=== PATIENT | female | born 1940 | race Caucasian/White ===

== ENCOUNTER 2017-09-26 15:15 | Observation (INO) | payer OTHER, MEDICARE ==
[~2017-09-26] VITALS: Ht 162.6 cm; Wt 74.4 kg
--- NOTE | 2017-09-26 15:40 | ED GI/GU/ABDOMINAL COMPLAINT ---
See Addendum History of Present Illness General Chief Complaint: General Adult Stated Complaint: NAUSEA,DIARRHEA,DEPRESSION AND ANXIETY X 1WK Source: patient, family Exam Limitations: no limitations Vital Signs & Intake/Output Vital Signs & Intake/Output Vital Signs Date Time Temp Pulse Resp B/P B/P Pulse O2 O2 Flow FiO2 Mean Ox Delivery Rate 09/27 1058 97.5 50 18 117/55 93 Room Air 09/27 0937 50 135/62 09/27 0937 50 135/62 09/27 0934 Room Air Room Air 09/27 0934 50 135/62 09/27 0740 97.4 61 18 136/61 94 Room Air 09/27 0641 96.0 52 16 139/64 97 Room Air 09/26 2349 50 16 118/58 95 Room Air 09/26 2147 97.8 72 16 227/100 09/26 1923 97.8 72 16 227/100 96 Room Air 09/26 1719 98.0 56 18 205/83 96 Room Air 09/26 1519 97.1 60 20 158/88 94 Room Air Room Air ED Intake and Output 09/27 0000 09/26 1200 Intake Total Output Total Balance Patient 164 lb Weight Weight Reported by Patient Measurement Method Allergies Coded Allergies: amitriptyline (From ELAVIL) (Intermediate, HALLUCINATIONS 09/26/17) peanut (UNKNOWN 09/26/17) Reconcile Medications Amiodarone HCl 200 MG TABLET 1 TAB PO QAM HEART (Reported) Aspirin (Ecotrin*) 81 MG TABLET.DR 1 TAB PO DAILY HEART/BLOOD (Reported) Clonazepam 0.5 MG TABLET 1 TAB PO BID ANXIETY (Reported) Cyanocobalamin (Vitamin B-12) (B-12 Dots) 500 MCG TABLET 1 TAB PO QAM SUPPLEMENT (Reported) Docusate Sodium (Colace) 100 MG CAPSULE 1 CAP PO BID PRN CONSTIPATION ( Reported) Duloxetine HCl 60 MG CAPSULE.DR 1 CAP PO QAM UNKNOWN (Reported) Ferrous Sulfate 325 MG (65 MG IRON) TABLET 1 TAB PO QAM SUPPLEMENT (Reported) Levothyroxine Sodium 100 MCG TABLET 1 TAB PO DAILY THYROID (Reported) Losartan Potassium 50 MG TABLET 1 TAB PO QAM BP (Reported) Mag Hydrox/Al Hydrox/Simeth (Alum-Mag Hydroxide-Simeth Liq) 200 MG-200 MG-20 MG/ 5 ML ORAL.SUSP 30 ML PO TID UNKNOWN (Reported) Meloxicam 7.5 MG TABLET 1 TAB PO QAM PAIN/INFLAMMATION (Reported) Methylphenidate HCl (Ritalin) 5 MG TABLET 10 MG PO QAM UNKNOWN (Reported) Mirtazapine 15 MG TABLET 1 TAB PO QPM UNKNOWN (Reported) Nystatin 500,000 UNIT TABLET 1 TAB PO TID ANTIFUNGAL (Reported) Ondansetron HCl 4 MG TABLET 1 TAB PO Q6P PRN NAUSEA (Reported) Pantoprazole Sodium 40 MG TABLET.DR 1 TAB PO DAILY GI (Reported) Potassium Chloride 10 MEQ TAB.ER.PRT 1 TAB PO DAILY CHOLESTEROL (Reported) Pravastatin Sodium 40 MG TABLET 1 TAB PO QPM CHOLESTEROL (Reported) Triage Note: PT TO ED WITH C/O NAUSEA AND DIARRHEA X 1 WEEK, EATING VERY LITTLE "GET DIARRHEA EVERY TIME I EAT". Triage Nurses Notes Reviewed? yes ? N Is pt currently ? No Onset: Gradual Duration: week(s): Timing: recent history Quality/Severity: moderate Location: generalized abdomen HPI: 77YO F with hx of HTN, GERD, anxiety, depression presents emergency department complaining of diarrhea times over one week. Patient reports 3-4 episodes of nonbloody stool per day. Patient also complaining of nausea beginning yesterday. Patient states she cannot eat anything this will go right through her system. Patient's are primary care doctor 3 days ago and was started on Mylanta for her GI issues and nystatin for "mouth ulcers". Patient is also reporting worsening depression recently although states she has been depressed for about 6 months. Daughter states patient does not access to psychiatrist at assisted living facility where she resides. Patient has no similar previous episodes of diarrhea. Patient denies fevers, chills, abdominal pain, chest pain , dyspnea. (Jacinta SPRINGER,Radha Mead) Past History Travel History Traveled to [place] past 21 day No Medical History Any Pertinent Medical History? 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 No (Jacinta SPRINGER,Radha Mead) Review of Systems Review of Systems Constitutional: Reports: no symptoms. EENTM: Reports: see HPI. Respiratory: Reports: no symptoms. Cardiovascular: Reports: no symptoms. GI: Reports: see HPI. Genitourinary: Reports: no symptoms. Musculoskeletal: Reports: no symptoms. Skin: Reports: no symptoms. Neurological/Psychological: Reports: see HPI. Hematologic/Endocrine: Reports: no symptoms. Immunologic/Allergic: Reports: no symptoms. All Other Systems: Reviewed and Negative (Jacinta SPRINGER,Radha Mead) Physical Exam Physical Exam General Appearance: well developed/nourished, no apparent distress, alert, awake Head: atraumatic, normal appearance Eyes: Bilateral: normal appearance. Ears, Nose, Throat, Mouth: hearing grossly normal, moist mucous membrane, pharynx normal, no ulcers Neck: normal inspection, supple, full range of motion Respiratory: normal breath sounds, no respiratory distress, lungs clear Cardiovascular: regular rate/rhythm Gastrointestinal: normal bowel sounds, soft, no organomegaly, RUQ, RLQ tenderness, no gaurding Back: normal inspection, normal range of motion Extremities: normal range of motion Neurologic/Psych: awake, alert, oriented x 3, facial twitching through out exam Skin: intact, normal color, warm/dry Core Measures ACS in differential dx? No Sepsis Present: No Sepsis Focused Exam Completed? No (Jacinta SPRINGER,Radha Mead) Progress Differential Diagnosis: appendicitis, bowel obstruction, cholecystitis, diverticulitis, gastritis, inflamm bowel dis, SBO, gastroenteritis, infectious diarrhea, colitis, c diff Plan of Care: Orders Procedure Date/time Status Heart Healthy Diet 09/[address] in observation 09/26 2202 Active Patient Data 09/26 2202 Active Add-on Test (ER Only) 09/26 2138 Active CULTURE,STOOL 09/26 1921 Active Add-on Test (ER Only) 09/26 1736 Active URINE DRUG SCREEN FOR ER ONLY 09/26 1736 Complete URINALYSIS 09/26 1736 Complete ED CRISIS PSYCH CONSULT 09/26 1633 Active Intake & Output 09/26 1557 Active ETHANOL 09/26 1550 Complete RAPID VIRAL INFLUENZA A 09/26 1540 Complete C.DIFFICILE 09/26 1530 Active COMPREHENSIVE METABOLIC PANEL 09/26 1524 Complete CBC WITHOUT DIFFERENTIAL 09/26 1524 Complete Current Medications Sig/Darlene Start time Last Medication Dose Stop Time Status Admin Mirtazapine 15 MG QPM 09/27 2200 AC (Remeron) Pravastatin Sodium 40 MG QPM 09/27 2200 AC (Pravachol) Amiodarone HCl 200 MG QAM 09/27 1000 AC (Cordarone) Aspirin Buffered 81 MG DAILY 09/27 1000 AC 09/27 (Ecotrin) 0937 Duloxetine HCl 60 MG QAM 09/27 1000 AC 09/27 (Cymbalta) 0937 Losartan Potassium 50 MG QAM 09/27 1000 AC 09/27 (Cozaar) 0937 Methylphenidate HCl 10 MG QAM 09/27 1000 AC 09/27 (Ritalin) 0946 Levothyroxine Sodium 0.1 MG DAILY AC 09/27 0700 AC 09/27 (Synthroid) 0937 Clonazepam 0.5 MG BID 09/26 2300 AC 09/27 (KlonoPIN) 10/03 225 0937 Docusate Sodium 100 MG BID PRN 09/26 2300 AC (Colace) Diphenoxylate HCl/ 2.5 MG 4 TIMES/DAY 09/26 220 AC 09/27 Atropine 0937 (Lomotil) Laboratory Tests 09/26/17 1912: Urine Opiates Screen < 100.00, Methadone Screen 87, Barbiturate Screen < 60, Ur Phencyclidine Scrn < 6.00, Amphetamines Screen < 100, U Benzodiazepines Scrn < 85, Urine Cocaine Screen < 50, Urine Cannabis Screen < 5.00, Urinalysis MOD H, Urine Color YEL, Urine Clarity HAZY H, Urine pH 6.5, Ur Specific [place] 1.010, Urine Protein NEG, Urine Ketones NEG, Urine Nitrite NEG, Urine Bilirubin NEG, Urine Urobilinogen 0.2, Ur Leukocyte Esterase SMALL H, Ur Microscopic SEDIMENT EXAMINED, Urine RBC FEW H, Urine WBC 1-3 H, Ur Epithelial Cells FEW, Urine Bacteria FEW H, Urine Hemoglobin TRACE-INTACT, Urine Glucose NEG 09/26/17 1550: Anion Gap 9, Estimated GFR > 60, BUN/Creatinine Ratio 17.8, Glucose 89, Calcium 9.4, Total Bilirubin 0.3, AST 28, ALT 42, Alkaline Phosphatase 78, Total Protein 5.7 L, Albumin 3.6, Globulin 2.1, Albumin/Globulin Ratio 1.7, CBC w Diff NO MAN DIFF REQ, RBC 5.05, MCV 89.8, MCH 29.6, MCHC 33.0, RDW 13.4, MPV 10.5 H, Gran % 66.1, Lymphocytes % 24.7, Monocytes % 7.8, Eosinophils % 1.1, Basophils % 0.3, Absolute Granulocytes 3.3, Absolute Lymphocytes 1.2, Absolute Monocytes 0.4, Absolute Eosinophils 0.1, Absolute Basophils 0, Serum Alcohol < 10.0 Microbiology 09/26 1920 STOOL: Clostridium difficile Toxin A & B - RES 09/26 1920 STOOL: Stool Culture - RES 09/26 1515 NASOPHARYN: Influenza Virus A & B Rapid Smear - COMP The patient was discussed with Dr. Balderrama. We'll start Lomotil 4 times a day for 2 days for her diarrhea. Stool cultures pending. Will do Zofran when necessary for nausea. Crisis present to see and evaluate patient. They recommend geriatric psychiatry admission. Patient to be ED observation given her diarrhea and hypertension here in the emergency department pending geriatric psychiatric admission to another facility. All findings discussed with the patient's daughter who agrees with the plan of care. Diagnostic Imaging: Viewed by Me: CT Scan. Discussed w/RAD: CT Scan. Radiology Impression: PATIENT: EDMUND GREGORIO PRESENT AGE: 77 PATIENT ACCOUNT NO: [id number] : 38 LOCATION: [facility] ORDERING PHYSICIAN: Radha SPRINGER SERVICE DATE: 09/26/17 EXAM TYPE: CAT - CT ABD & PELVIS W IV CONTRAST EXAMINATION: CT ABDOMEN AND PELVIS WITH CONTRAST CLINICAL INFORMATION: Generalized abdominal pain. Diarrhea. COMPARISON: None. TECHNIQUE: Multidetector volumetric imaging was performed of the abdomen and pelvis following IV administration of 95 mL of Optiray 320 intravenous contrast. Sagittal and coronal reformatted images were obtained on the technologist's workstation. DLP: 339.2 mGy-cm FINDINGS: LUNG BASES: The visualized lung bases are unremarkable. Bilateral breast implants. LIVER, GALLBLADDER, AND BILIARY TREE: The liver is normal in size, shape, and attenuation. No focal hepatic lesion or biliary ductal dilatation is present. The gallbladder is unremarkable with no evidence of radiopaque gallstones, gallbladder wall thickening, or obvious pericholecystic inflammatory changes. PANCREAS: Unremarkable. SPLEEN: Unremarkable. ADRENAL GLANDS: Unremarkable. KIDNEYS AND URETERS: There are numerous bilateral cysts of the kidneys. These range in size from several millimeters to the largest at the upper pole of the left kidney measuring about 5.6 cm in diameter. No renal or ureteral calculi. There is no hydronephrosis. BLADDER: Unremarkable. GASTROINTESTINAL TRACT: There is diverticulosis of the sigmoid. There are a few scattered diverticula in the remainder of the colon. No acute abnormality of the bowel. No bowel obstruction. No bowel wall thickening or edema. There is a moderate volume of stool scattered throughout the colon. The appendix is normal. The small bowel loops are unremarkable. There is a moderate-sized hiatal hernia. ABDOMINAL WALL: No significant hernia is appreciated. LYMPH NODES: Normal. VASCULAR: Scattered vascular wall calcifications of the abdominal aorta. There is no aneurysm. PELVIC VISCERA: The uterus is retroverted. There is no adnexal abnormality. No fluid in the cul-de- sac. OSSEOUS STRUCTURES: Multilevel degenerative spondylosis of the spine with disc height narrowing, endplate spurring and vacuum disc phenomena and facet joint arthrosis. There is levoscoliosis of the midlumbar spine. There is a small sclerotic island in the right sacral ala. IMPRESSION: No acute abnormality of the abdomen or pelvis. There is mild diverticulosis of the colon but no acute abnormality of the bowel. DICTATED BY: Jagdeep Plasencia MD DATE/TIME DICTATED:1802 INSURANCE AGENCY SALES MANAGER:HECTOR DATE/TIME TRANSCRIBED:09/26/171802 CONFIDENTIAL, DO NOT COPY WITHOUT APPROPRIATE AUTHORIZATION. <Electronically signed in Other Vendor System> SIGNED BY: Jagdeep Plasencia MD 09/26/171817 Initial ED EKG: none (Jacinta SPRINGER,Radha Mead) Hand-Off Endorsed To: Alek Frazier DO Endorsed Time: 0700 Pending: consult (Tacos AQUINO,Leonel Stanton) Departure Departure Disposition: STILL A PATIENT Condition: Stable Clinical Impression Primary Impression: Diarrhea Qualifiers: Diarrhea type: unspecified type Qualified Code: R19.7 - Diarrhea, unspecified Secondary Impressions: Depression Qualifiers: Depression Type: unspecified Qualified Code: F32.9 - Major depressive disorder, single episode, unspecified Hypertension Nausea Referrals: Jose Cruz AQUINO,Kp Vieyra Additional Instructions: Begin Lomotil for the next two days. Discontinue on Friday and continue high fiber diet. Departure Forms: Customer Survey General Discharge Information (Radha Lacey) PA/TEST MAN Co-Sign Statement Statement: ED Attending supervision documentation- [x] I saw and evaluated the patient. I have also reviewed all the pertinent lab results and diagnostic results. I agree with the findings and the plan of care as documented in the PA's/TEST MAN's documentation. 09/27/17, 23.30... pt resting comfortably. doing well... geriatric psyche eval in AM. [] I have reviewed the ED Record and agree with the PA's/TEST MAN's documentation. [] Additions or exceptions (if any) to the PAs/TEST MAN's note and plan are summarized below: [] (Tacos AQUINO,Leonel Stanton) PA/TEST MAN Co-Sign Statement Statement: ED Attending supervision documentation- [] I saw and evaluated the patient. I have also reviewed all the pertinent lab results and diagnostic results. I agree with the findings and the plan of care as documented in the PA's/TEST MAN's documentation. [] I have reviewed the ED Record and agree with the PA's/TEST MAN's documentation. [] Additions or exceptions (if any) to the PAs/TEST MAN's note and plan are summarized below: [] 09/27/17 2 PM The patient was signed out to me by Dr. Balderrama at 7 AM. She is pending placement in a geriatric psychiatric center. C. difficile was negative. (Alek Frazier DO) ED Attending Observation Initial Observation Note: I have seen and personally examined EDMUND GREGORIO on 09/26/17 at 2321. I agree with the current emergency department documentation. The disposition (admission or discharge) is uncertain at this time, she needs a period of observation for the following reason(s): PT TO BE SEEN FOR GERIATRIC PSYCHE, AND THEN ALSO WILL MONITOR C.DIFF CULTURES AND MANAGEMENT NAUSEA AND DIARRHEA. The ED Nurse caring for this patient has been personally informed as to what the patient is being observed for. Observation Re-Evaluation: I have reevaluated EDMUND GREGORIO on 09/27/17 at 0323. The physical findings that support the continued need to observe this patient include ... pt is resting comfortably... geriatric psyche to evaluate in the AM. (Tacos AQUINO,Leonel Stanton)
[2017-09-26 16:02] LABS: ABSOLUTE BASOPHIL COUNT 0 /CUMM (0.0-0.2); ABSOLUTE EOSINOPHIL COUNT 0.1 /CUMM (0.0-0.7); ABSOLUTE GRANULOCYTE CT 3.3 /CUMM (1.4-6.5); ABSOLUTE LYMPH COUNT 1.2 /CUMM (1.2-3.4); ABSOLUTE MONOCYTE COUNT 0.4 /CUMM (0.10-0.60); BASOPHIL % 0.3 % (0.0-2.0); EOSINOPHIL % 1.1 % (0-5); GRANULOCYTE % 66.1 % (42.2-75.2); HEMATOCRIT 45.4 % (37-47); MEAN CORPUSCULAR HGB 29.6 PG (27.0-31.0); MEAN CORPUSCULAR VOLUME 89.8 FL (81.0-99.0); MEAN PLATELET VOLUME 10.5 FL (7.4-10.4); PLATELET COUNT 154 /CUMM (130-400); RBC DISTRIBUTION WIDTH 13.4 % (11.5-14.5); RED BLOOD CELL CT 5.05 /CUMM (4.20-5.40)
--- NOTE | 2017-09-26 18:18 | CT SCAN REPORT ---
EXAMINATION: CT ABDOMEN AND PELVIS WITH CONTRAST CLINICAL INFORMATION: Generalized abdominal pain. Diarrhea. COMPARISON: None. TECHNIQUE: Multidetector volumetric imaging was performed of the abdomen and pelvis following IV administration of 95 mL of Optiray 320 intravenous contrast. Sagittal and coronal reformatted images were obtained on the technologist's workstation. DLP: 339.2 mGy-cm FINDINGS: LUNG BASES: The visualized lung bases are unremarkable. Bilateral breast implants. LIVER, GALLBLADDER, AND BILIARY TREE: The liver is normal in size, shape, and attenuation. No focal hepatic lesion or biliary ductal dilatation is present. The gallbladder is unremarkable with no evidence of radiopaque gallstones, gallbladder wall thickening, or obvious pericholecystic inflammatory changes. PANCREAS: Unremarkable. SPLEEN: Unremarkable. ADRENAL GLANDS: Unremarkable. KIDNEYS AND URETERS: There are numerous bilateral cysts of the kidneys. These range in size from several millimeters to the largest at the upper pole of the left kidney measuring about 5.6 cm in diameter. No renal or ureteral calculi. There is no hydronephrosis. BLADDER: Unremarkable. GASTROINTESTINAL TRACT: There is diverticulosis of the sigmoid. There are a few scattered diverticula in the remainder of the colon. No acute abnormality of the bowel. No bowel obstruction. No bowel wall thickening or edema. There is a moderate volume of stool scattered throughout the colon. The appendix is normal. The small bowel loops are unremarkable. There is a moderate-sized hiatal hernia. ABDOMINAL WALL: No significant hernia is appreciated. LYMPH NODES: Normal. VASCULAR: Scattered vascular wall calcifications of the abdominal aorta. There is no aneurysm. PELVIC VISCERA: The uterus is retroverted. There is no adnexal abnormality. No fluid in the cul-de-sac. OSSEOUS STRUCTURES: Multilevel degenerative spondylosis of the spine with disc height narrowing, endplate spurring and vacuum disc phenomena and facet joint arthrosis. There is levoscoliosis of the midlumbar spine. There is a small sclerotic island in the right sacral ala. IMPRESSION: No acute abnormality of the abdomen or pelvis. There is mild diverticulosis of the colon but no acute abnormality of the bowel.
--- NOTE | 2017-09-26 19:50 | ED PSY CRISIS COLLATERAL NOTE ---
Collateral Note Collateral Note Family/Inform/Cecy Contacts: This clinician spoke with Amy Baca [phone] daughter of the patient. Amy reports wthe patient has been complaining of nausea and diarrhea for the past few weeks. She [facility] her [facility] and diarrhea. Amy reports the mother having a long history of depression and currently being treated with Cymbalta 60 mg and recently increased from 50 mg. Amy reports the mother has been crying all day and this Friday was the worst with crying. She reports the mother has been shaking and experiecing Tardive Dyskinesia.
--- NOTE | 2017-09-26 21:03 | ED PSYCH CRISIS CONSULTATION ---
See Addendum Crisis Consult Basic Assessment Date of Consult: 09/26/17 Responsible Person/Accompanied By: self/accompanied by daughter Amy Lemus Insurance Authorization: Insurance #1: Insurance name: MEDICARE A Phone number: Policy number: [id number] Group number: Authorization number: ED Provider: Patient's ED Provider: Radha Lacey Primary Care Physician: Patient's PCP: Ángel Somers MD PCP's Current Psychiatrist: Dr. Leodan Berry Chief Complaint: General Adult Patient's Quote: " I will jump out of the car" Present Illness: Patient is a 77 year old female with history of Hypertension, GERD, Anxiety, and Depression. Patient reports having diarrhea and nausea for over one week. She reports going to primary care physician regarding physical complaints. Patient presents shaking, and experiencing Tardive Dyskinesia. She states feeling depressed and sad. She reports suicide ideation with a plan to jump out of a car. Patient denied any homicidal ideation. The patient denied any auditory or visual hallucinations. The patient is currently being treated with Cymbalta 60 mg recently increased from 50 mg after seeing her psychiatrist Dr. Salina Izaguirre. The patient is currently living in [facility] in [place], [place]. This clinician spoke with Dr. Salina Izgauirre [phone] who reports the patient has a long history of with depression. She reports the patient currently being treated with Cymbalta 60 mg and recently increased from [address] Izaguirre is recommending the patient to be admitted to inpatient psychiatric treatment. Patient's Address: [address] [place] [address] Other Phone Number: Who Do You Live With? Other (see notes) (Residential housing) Family/Informants Interviewed: Amy Baca daughter [phone]. Allergies - Coded Allergies: amitriptyline (From ELAVIL) (Intermediate, HALLUCINATIONS 09/26/17) Laboratory Results: Laboratory Tests 09/26/172: Urine Opiates Screen < 100.00, Methadone Screen 87, Barbiturate Screen < 60, Ur Phencyclidine Scrn < 6.00, Amphetamines Screen < 100, U Benzodiazepines Scrn < 85, Urine Cocaine Screen < 50, Urine Cannabis Screen < 5.00, Urinalysis MOD H, Urine Color YEL, Urine Clarity HAZY H, Urine pH 6.5, Ur Specific [place] 1.010, Urine Protein NEG, Urine Ketones NEG, Urine Nitrite NEG, Urine Bilirubin NEG, Urine Urobilinogen 0.2, Ur Leukocyte Esterase SMALL H, Ur Microscopic SEDIMENT EXAMINED, Urine RBC FEW H, Urine WBC 1-3 H, Ur Epithelial Cells FEW, Urine Bacteria FEW H, Urine Hemoglobin TRACE-INTACT, Urine Glucose NEG 09/26/17 1550: Anion Gap 9, Estimated GFR > 60, BUN/Creatinine Ratio 17.8, Glucose 89, Calcium 9.4, Total Bilirubin 0.3, AST 28, ALT 42, Alkaline Phosphatase 78, Total Protein 5.7 L, Albumin 3.6, Globulin 2.1, Albumin/Globulin Ratio 1.7, CBC w Diff NO MAN DIFF REQ, RBC 5.05, MCV 89.8, MCH 29.6, MCHC 33.0, RDW 13.4, MPV 10.5 H, Gran % 66.1, Lymphocytes % 24.7, Monocytes % 7.8, Eosinophils % 1.1, Basophils % 0.3, Absolute Granulocytes 3.3, Absolute Lymphocytes 1.2, Absolute Monocytes 0.4, Absolute Eosinophils 0.1, Absolute Basophils 0, Serum Alcohol < 10.0 Microbiology 09/26 1920 STOOL: Clostridium difficile Toxin A & B - RECD 09/26 1515 NASOPHARYN: Influenza Virus A & B Rapid Smear - COMP Past History Past Medical History Neurological: HEAD SHAKING EENT: NONE Cardiovascular: AFIB, hypertension, hyperlipidemia Respiratory: NONE Gastrointestinal: GERD Hepatic: NONE Renal: UTI Musculoskeletal: osteoarthritis Psychiatric: anxiety, depression Endocrine: hypothyroidism Blood Disorders: NONE Cancer(s): NONE 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 Psychiatric Treatment History Psych Treatment Psychiatric Treatment Yes Inpatient Treatment Yes Outpatient Treatment Yes Location of Treatment [place] Reason for Treatment Depression Dates of Treatment currently being treated by Dr. Salina Izaguirre Response to Treatment poor Diagnosis by History: Depression Substance Use/Abuse History Drug Use/Abuse Substances Used/Abused No Last Used none How much used/taken none How often none For how long none Route of use none Substance Abuse Treatment Substance Abuse Treatment Past Substance Abuse [place] No Inpatient Treatment No Outpatient Treatment No Location of Treatment none Reason for Treatment none Dates of Treatment none Response to Treatment n/a Current Mental Status Mental Status Orientation: Person, Place, Situation Affect: Depressed, Sad Speech: Soft Neuro-vegetative: Appetite Decreased, Energy Decreased Appearance Appearance- Dress/Hygiene: dressed in hospital clothing Behaviors Thought Process: WNL Thought Content: WNL Memory: correction memory Insight: Poor SI/HI Risk Assessment Past Suicidal Ideation/Attempts No Current Suicidal Ideation/Att Yes Past Homicidal Ideation/Att: No Current Homicidal Ideation/Attempts No Degree of Intent: Plan, States Intent Danger To: Self Gravely Disabled: Inability, Lack of Insight, Poor Judgment Risk Factors: age (under 24/over 65), SA/MH hospitalized, isolate/no social support Lethality Ratin PTSD Checklist PTSD Score: PTSD Score: Response Value Disturbing memories,thoughts,images of stressful experience? Not at all 1 Disturbing dreams of stressful experience from past? Not at all 1 Suddenly acting/feeling as if reliving stressful experience? Not at all 1 Total 3 PTSD Done? pt unable to participate ED Management Sitter: Yes Restraints: No DSM5/PS Stressors/Medical Prob Diagnosis' (DSM 5, Stressors, Medical): F32.9 Major Depression, Unspecified Current GAF: 25 Comments: Pt presents to the emergency room depressed, sad, shaking, Tardive Dyskinesia and suicide ideation with a plan to jump out of a car. Patient has a long histoty of depression currently being treated with Cymbalta 60 mg. This clinician consulted with Dr. Leodan Berry who recommends the patient to go into inpatient psychiatric treatment. Departure Disposition Psych Medical Clearance Date: 09/26/17 Medically Cleared at: 1999 Time Started: 1999 Time Ended: 2099 Psychiatrist Consulted: Dr. Leodan Berry Date Disposition Established: 09/26/17 Time Disposition Established: 2099 Plan for Disposition - Modality: Bed Search Rationale for Disposition: Pt presents to the emergency room depressed, sad, shaking, Tardive Dyskinesia and suicide ideation with a plan to jump out of a car. Patient has a long histoty of depression currently being treated with Cymbalta 60 mg. This clinician consulted with Dr. Leodan Berry who recommends the patient to go into inpatient psychiatric treatment. Referrals Yonis AQUINO,Ángel Gardner (PCP/Family)
[2017-09-26] MEDS ORDERED: LOSARTAN POTASS50 M1 PO (22:50)
[2017-09-26] MEDS ORDERED: PANTOPRAZOLE SO40 M1 PO (22:50)
[2017-09-26] MEDS ORDERED: LEVOTHYROXINE100 MC1 PO (22:50)
[2017-09-26] MEDS ORDERED: DULOXETINE HCL60 MG PO (22:51)
[2017-09-26] MEDS ORDERED: AMIODARONE HCL200 M2 PO (22:51)
[2017-09-26] MEDS ORDERED: B-12 DOTS500 MCG PO (22:52)
[2017-09-26] MEDS ORDERED: ASPIRIN EC81 M1 PO (22:52)
[2017-09-26] MEDS ORDERED: POTASSIUM CHLO10 ME5 PO (22:53)
[2017-09-26] MEDS ORDERED: MELOXICAM7.5 M1 PO (22:54)
[2017-09-26] MEDS ORDERED: FERROUS SULFAT325 M3 PO (22:54)
[2017-09-26] MEDS ORDERED: RITALIN5 M2 PO (22:55)
[2017-09-26] MEDS ORDERED: CLONAZEPAM0.5 M2 PO (22:55)
[2017-09-26] MEDS ORDERED: NYSTATIN500000 UNI PO (22:56)
[2017-09-26] MEDS ORDERED: ALUM-MAG HYDRO360 ML PO (22:58)
[2017-09-26] MEDS ORDERED: PRAVASTATIN SOD40 M2 PO (22:59)
[2017-09-26] MEDS ORDERED: ONDANSETRON HCL4 MG PO (22:59)
[2017-09-26] MEDS ORDERED: MIRTAZAPINE15 M2 PO (22:59)
[2017-09-26] MEDS ORDERED: COLACE100 M1 PO (23:00)
[2017-09-27 15:05] VITALS: BP 122/80
== END 2017-09-27 19:15 ==
LOC: ERH 15:15 → ERHI 22:03 → ERH 22:03 → ERHI 22:03 → ENRESERV 22:33 → ERHI 09-27 19:15
PROVIDERS: Internal Medicine
DX: R19.7 Diarrhea, unspecified (principal); R11.0 Nausea; F32.9 Major depressive disorder, single episode, unspecified; F41.9 Anxiety disorder, unspecified; Z79.82 Long term (current) use of aspirin; I10 Essential (primary) hypertension; K21.9 Gastro-esophageal reflux disease without esophagitis; I48.91 Unspecified atrial fibrillation; E78.5 Hyperlipidemia, unspecified; M19.90 Unspecified osteoarthritis, unspecified site; Z87.891 Personal history of nicotine dependence; Z79.899 Other long term (current) drug therapy
CPT/HCPCS: 74177; 80307; 81001; 87045; 87804; 87804-59; 96374; G0378; G0463; G0480; J2405; J3101